=== PATIENT | female | born 2000 | race Hispanic/Latino ===

== ENCOUNTER 2020-03-02 22:06 | Emergency (ER) | payer SELFPAY ==
[2020-03-02 23:33] LABS: #Eosinphils 0.3 thou/uL (0.0-0.7); #Lymphocytes 3.2 thou/uL (1.20-3.40); #Monocytes 1.1 thou/uL (0.11-0.59); #Neutrophils 7.3 thou/uL (1.40-6.50); %Basophils 0.3 % (0.0-1.0); %Eosinophils 2.7 % (0.0-10.0); %Lymphocytes 26.7 % (28.0-48.0); %Neutrophils 61.2 % (31.0-61.0); Hemoglobin 10.9 g/dL (12.0-16.0); Mean Corpuscular HGB CONC 34.1 g/dL (32.0-36.0); Mean Corpuscular Hemoglobin 31.5 pg (25.0-35.0); Mean Corpuscular Volume 92.3 fL (78.0-98.0); Mean Platelet Volume 7.7 fL (7.4-10.4); Platelet Count 327 thou/uL (130-400); RBC Distribution Width 12.5 % (11.5-14.5); Red Blood Cell (RBC) Count 3.48 mill/uL (4.00-5.20)
[2020-03-02 23:49] LABS: ALT (SGPT) 22 U/L (8-55); AST (SGOT) 14 U/L (5-30); Albumin 3.8 g/dL (3.5-5.0); Alkaline Phosphatase 75 U/L (40-100); Anion Gap 12 mmol/L (10-20); BUN (Urea Nitrogen) 6 mg/dL (8.4-21.0); Bilirubin, Total 0.2 mg/dL (0.2-1.2); Calc. Creatinine Clearance 0 mL/min (70-130); Carbon Dioxide 22 mmol/L (22-29); Chloride 107 mmol/L (98-107); Estimated GFR-MDRD Greater than 90; Globulin 3.1 g/dL (2.4-3.5); Glucose 93 mg/dL (70-105); Potassium 4.1 mmol/L (3.5-5.1); Protein, Total 6.9 g/dL (6.0-8.3); Sodium 137 mmol/L (136-145)
[2020-03-02 23:56] LABS: Bilirubin Negative (Negative); Blood, Urine Negative (Negative); Clarity Turbid (Clear); Glucose, Urine (Dipstick) Normal (Negative); Ketone, Urine Negative (Negative); Leukocyte 500 Leu/uL (Negative); Nitrite Negative (Negative); Protein, Urine (Dipstick) 10 mg/dL (Neg-Trace); RBC/HPF 0-3 HPF (0-3); Specific Gravity, Urine 1.022 (1.002-1.036); Urobilinogen Normal mg/dL (Less than 2); WBC/HPF 0-3 HPF (0-3)
[2020-03-02 23:57] LABS: Bacteria/HPF 1+ HPF (None Seen)
[2020-03-06 21:47] LABS: Chlamydia by PCR Not Detected (NotDetected); GC by PCR Not Detected (NotDetected)
== END 2020-03-03 01:01 | disposition home or self-care (01) ==
LOC: ERS 22:06
DX: O98.812 Other maternal infectious and parasitic diseases complicating pregnancy, second trimester (principal); B37.3 Candidiasis of vulva and vagina; O23.42 Unspecified infection of urinary tract in pregnancy, second trimester; Z3A.17 17 weeks gestation of pregnancy
CPT/HCPCS: 36415; 80053; 81003; 81015; 85025; 87077; 87086; 87480; 87491; 87510; 87591; 87660; 99283

== ENCOUNTER 2020-07-07 10:24 | Day surgery (SDC) | payer SELFPAY ==
--- NOTE | 2020-07-07 13:33 | PDOC.FPROB ---
FMR OB H&P: HPI - History of Present Illness Chief Complaint: BPP 6/10 in office Indentification: 20F at 35.6WGA History of Present Illness: Liudmila was sent from [facility] after a BPP score of 4/10 was obtained. She states she has felt good movement and denies ORTIZ/vision changes/SOB/CP/dysuria/vaginal discharge/vaginal bleeding/LOF. 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 UDS positive for cannabinoids in , followed by negative repeats - Family History Family History: Fam hx noncontributory FMR OB H&P: Medications - Current Home Medications: Medication Instructions Recorded Confirmed Type Ferrous Fumarate [Ferrocite] 07/07/20 History Pnv No.95/Ferrous Fum/Folic AC 1 each PO 07/07/20 History [ Caplet] Allergies/Adverse Reactions: Allergies Allergy/AdvReac Type Severity Reaction Status Date / Time No Known Allergies Allergy Unverified 07/07/20 11:24 FMR OB H&P: ROS - Review of Systems General: denies: recent trauma Eyes: denies: vision changes, double vision, scotomas, floaters ENT: denies: nasal congestion Cardiovascular: denies: chest pain Respiratory: denies: shortness of breath Gastrointestinal: denies: abdominal pain Genitourinary (Female): denies: dysuria, vaginal discharge, vaginal bleeding, contractions Musculoskeletal: denies: swelling Neurologic: denies: headache Integumentary: denies: rash Endocrine: denies: polyuria FMR OB H&P: Vital Signs - Heart Tones Baseline: 140 Variability: moderate Acceleration: present Deceleration: variable Category: category 1 [place] contractions every: 0 FMR OB H&P: Physical Exam - Physical Exam General: NAD, awake, alert and oriented HEENT: normocephalic and atraumatic, EOMI, grossly normal vision, grossly normal hearing Neck: supple, FROM Chest: non-tender to palpation Heart: RRR, normal S1/S2, no edema General: CTAB, no respiratory distress, good air movement Abdomen: soft, gravid, non-tender, bowel sound present Musculoskeletal: FROM in all four extremities Neurological: no focal deficit Skin: no rash Lymphatic: no unusual bruising or bleeding Psychiatric: intact recent and remote memory, good judgement and insight, normal mood and affect FMR OB H&P: A/P Disposition: This is a 20yo at 35.6wks who was sent from clinic for non-reassuring testing. Non-reassuring testing - BPP in clinic of 11/12 - NST on arrival reactive: baseline 140, moderate variability, >2 accels, few variable decels - Will repeat BPP 4-6hrs after the one performed in clinic - Continuous monitoring sIUP in 3T - 35.6WGA Hx of genital HSV - Recommend Valtrex at 36.0WGA for ppx Hx of marijuana use - UDS positive for cannabinoids with confirmatory test - Multiple f/u UDS, all neg Hx of Covid in - Now resolved Diet: Regular, pending completion of BPP PCP: ISSA Cameron Dispo: on L&D for triage pending completion of testing. Discussion: Date/Time: 07/07/20 4169 This H&P was discussed with Dr. Pk Piña and Dr. Ce Cristobal who agree with the above documentation and plan. Addendum - Attending - Attending Attestation Date/Time: 07/07/202205 I personally evaluated the patient and discussed the management with Dr. [] I agree with the History, Examination, Assessment and Plan documented above with any addition or exceptions noted below.
--- NOTE | 2020-07-07 15:20 | PDOC.BPN ---
- Brief Progress Note Encounter Date: 07/07/20 Encounter Time: 15:15 S: Liudmila is doing well and has no concerns at this time. O: BPP completed with score of 03/12 P: Reactive NST on arrival + 03/12 BPP score makes for reassuring testing. Will discharge pt and recommend f/u with PCP on Saturday. Plan discussed with Dr. Cristobal who agrees.
--- NOTE | 2020-07-07 15:34 | ULT ---
ULTRASOUND BIOPHYSICAL PROFILE: DATE: 07/07/2020 HISTORY: 20-year-old female with abnormal biophysical profile in office, 6 out of 10 FINDINGS: breathin tone: 2 movement: 2 Amniotic fluid volume: 2 lie: Vertex heart rate: 140 bpm LONA: 11.5 cm Placenta: Anterior. No placenta previa. Maternal cervix: Obscured IMPRESSION: Normal biophysical profile score of 8 out of 8, excluding the nonstress test.
[2020-07-08] MEDS ORDERED: FLU VACC QS2020-21(6MOS UP)/PF 60 MCG/0.5 ML SYRINGE IM ONE (09:00)
== END 2020-07-07 15:40 | disposition home or self-care (01) ==
LOC: L&D/OP 10:24
PROVIDERS: ATTEND Family Medicine
DX: Z01.89 Encounter for other specified special examinations (principal); O99.013 Anemia complicating pregnancy, third trimester; D64.9 Anemia, unspecified; Z3A.35 35 weeks gestation of pregnancy; Z86.19 Personal history of other infectious and parasitic diseases; Z86.59 Personal history of other mental and behavioral disorders
CPT/HCPCS: 76819

== ENCOUNTER 2020-07-19 03:42 | Inpatient (IN) | payer MEDICAID, OTHER, SELFPAY ==
[2020-07-19 04:09] VITALS: BMI 33.6
[2020-07-19] MEDS ORDERED: Methylergonovine 0.2 MG/ML VIAL IM PRN (04:56)
[2020-07-19] MEDS ORDERED: Carboprost 250 MCG/ML AMP IM PRN (04:56)
[2020-07-19] MEDS ORDERED: Lidocaine 1% (PF) 30 ML VIAL SC PRN (04:56)
[2020-07-19] MEDS ORDERED: Misoprostol 200 MCG TAB PR PRN (04:56)
[2020-07-19] MEDS ORDERED: Promethazine HCl 25 MG/ML VIAL IM PRN ×2 (04:56→06:05)
[2020-07-19] MEDS ORDERED: NS / Oxytocin 40 units/1000ml 1,000 ML IV PRN (04:56)
[2020-07-19] MEDS ORDERED: Ondansetron PF 4 MG/2 ML Vial IVP PRN ×2 (04:56→06:05)
[2020-07-19] MEDS ORDERED: hydrALAZINE 20 MG/ML VIAL SLOW IVP PRN ×2 (04:56→07:22)
[2020-07-19] MEDS ORDERED: Ibuprofen 800 MG TAB PO PRN (04:56)
[2020-07-19] MEDS ORDERED: Lactated Ringer's 1,000 ML IV SCH (05:00)
[2020-07-19] MEDS ORDERED: Penicillin G 2.5 MILL.units 2.5 MILL.UNITS in Premix Bag 1 BAG IVPB SCH (05:00)
[2020-07-19] MEDS ORDERED: Penicillin G Potassium 5 MILL.UNITS in Sodium Chloride 0.9% 100 ML IVPB SCH (05:00)
--- NOTE | 2020-07-19 05:00 | PDOC.FPROB ---
FMR OB H&P: HPI - History of Present Illness Chief Complaint: SROM History of Present Illness: 37 y/o @ 37.4 wks by 7.0 wk sono not c/w LMP presents with c/o SROM at 0200 this AM. Reports contractions starting around 2200 last night becoming stronger, more frequent and SROM clear fluid at 0200. Endorses good movement, no vaginal bleeding, no vaginal discharge other than clear fluid. has been complicated by COVID-19 infection in 01/2020, marijuana use in early . Hx of HSV, was started on valcyclovir yesterday, denies active lesions or prodromal symptoms. GBS positive, no known allergies. evaluation revealed elevated msAFP, subsequent sono with MFM had isolated EIF on anatomy scan which was resolved on later scans although views were described as suboptimal due to positioning. Primary Care Physician: ISSA Cameron FMR OB H&P: Current - Care : 1 Para: 0 Gestational age: 37.4 Due date: 08/05/20 Dating Criteria: 7.0 wk sono not c/w LMP Course/Complications: COVID 19 in 01/2020 Hx Marijuana use Hx HSV elevated msAFP isolated EIF - OB Labs Blood type: O RH: positive Antibody Screen: negative RPR: negative HepBsAg: negative Rubella: immune Quad screen: positive (elevated msAFP) Urine drug screen: positive (marijuana in 1T, neg 3T) Gonorrhea: negative Chlamydia: negative 1 hour gtt: 2 HR 73/113/105 GBS: positive H&H: 10.8 Additional labs: Hep c non reactive HSV 1 IgG positive HSV 2 IgG negative Trichomonas negative - Anatomy Survey Anatomy survey: isolated EIF at 21.3 wks, anatomically normal fetus on 25.3 wk repeat sono although some suboptimal views noted FMR OB H&P: History - Past Medical History PMH: hx HSV, hx covid 19 denies chronic medical problems - OB History OB History: ; GBS positive - MECHATRONICS TECHNICIAN History MECHATRONICS TECHNICIAN History: denies STDs, no pap (under 21) - Surgical History Sx History: denies past surgery - Social History Social History: hx marijuana use prior to - pos UDS in 1T, neg UDS in 3T denies tobacco, etoh use - Family History Family History: diabetes FMR OB H&P: Medications - Current Home Medications: Medication Instructions Recorded Confirmed Type Ferrous Fumarate [Ferrocite] 1 tab PO DAILY 07/07/20 07/19/20 History Pnv No.95/Ferrous Fum/Folic AC 1 each PO DAILY 07/07/20 07/19/20 History [ Caplet] Acyclovir [Zovirax] 1 tab PO TID 07/19/20 07/19/20 History Allergies/Adverse Reactions: Allergies Allergy/AdvReac Type Severity Reaction Status Date / Time No Known Allergies Allergy Verified 07/19/20 04:10 FMR OB H&P: ROS - Review of Systems General: denies: fever/chills Eyes: denies: eye pain, vision changes ENT: denies: nasal congestion, rhinorrhea, sore throat Cardiovascular: denies: chest pain, palpitation, edema Respiratory: denies: cough, congestion, shortness of breath Gastrointestinal: denies: abdominal pain, cramping, nausea, vomiting, diarrhea, constipation Genitourinary (Female): reports: contractions, vaginal pressure. denies: dysuria, hematuria, polyuria, vaginal discharge, vaginal bleeding Neurologic: denies: headache Integumentary: denies: rash, lesions Endocrine: denies: polyuria Psychological: denies: depression, anxiety FMR OB H&P: Vital Signs - Maternal Vital signs: Vital Signs - First Documented Temp Pulse Resp BP Pulse Ox 98.5 F 76 20 137/82 98 07/19/20 04:03 07/19/20 04:03 07/19/20 04:03 07/19/20 04:03 07/19/20 04:03 - Heart Tones Baseline: 125 Variability: moderate Acceleration: present Deceleration: absent Category: category 1 [place] contractions every: 2-3 min FMR OB H&P: Physical Exam - Physical Exam General: awake, alert and oriented, other (uncomfortable with contractions) HEENT: normocephalic and atraumatic, MMM, conjunctiva clear, no scleral icterus, grossly normal vision, grossly normal hearing Neck: supple Chest: non-tender to palpation Heart: RRR, no murmurs/rubs/gallops, pulses present, no edema General: CTAB, no respiratory distress Abdomen: soft, gravid, non-tender Musculoskeletal: pulses present Neurological: sensation to pain,touch and proprioception grossly normal, DTR +2, no clonus Skin: no rash, good tugor Lymphatic: no unusual bruising or bleeding Psychiatric: intact recent and remote memory, good judgement and insight, normal mood and affect - Pelvic Exam Vulva: normal hair distribution, no lesions Deviation from normal: no HSV lesions; head visible on spec exam; thick white DC vault Cervix: no lesions SVE: /- Membranes: SROM Presentation: vertex - bedside sono & speculum exam FMR OB H&P: A/P Disposition: sIUP @ 37.4 wks, SROM, latent labor 37.4 by 7.0 wk sono not c/w LMP, LARISA 08/05/20. SROM clear fluid at home around 0200. - Vertex on bedside sono - Pooling of clear fluid on speculum exam & scalp visualized through cervical os - desires epidural - FHT 125/mod/+accels, cat 1 - SVE @ 0500 - will admit for continued monitoring and augmentation of latent labor GBS positive No allergies. Will start PCN for GBS ppx. Hx HSV Started valcyclovir yesterday. No lesions on speculum exam. No prodromal sx. [place] Hx [place] use Positive UDS in 1T, negative in 3T. - will repeat UDS Elevated msAFP Isolated EIF - noted on 21.3 wk sono with MFM, - f/u sono at 25.3 wk anatomically normal although some suboptimal views 2/2 position Discussion: Date/Time: 07/19/20 0500 This H&P was discussed with Dr. Edward and Dr. Saha who agree with the above documentation and plan.
[2020-07-19] MEDS ORDERED: DISCONTINUE ALL PREVIOUS NARCOTICS FS SCH (05:15)
[2020-07-19] MEDS ORDERED: Bupivacaine 0.5% 20 ML, fentaNYL Citrate/PF 400 MCG in Sodium Chloride 0.9% 72 ML EPIDURAL SCH (05:15)
[2020-07-19 05:26] LABS: Hemoglobin 12.3 g/dL (12.0-16.0); Mean Corpuscular HGB CONC 34.7 g/dL (32.0-36.0); Mean Corpuscular Hemoglobin 31.6 pg (25.0-35.0); Mean Corpuscular Volume 91.2 fL (78.0-98.0); Mean Platelet Volume 8.3 fL (7.4-10.4); Platelet Count 262 thou/uL (130-400); RBC Distribution Width 13.8 % (11.5-14.5); White Blood Cell (WBC) Count 13.2 thou/uL (4.8-10.8)
[2020-07-19 06:04] LABS: HBSAg Index 0.12 S/CO (0-0.99); Hep B Surf Ag Non-Reactive S/CO (NonReactive); Syphilis Antibody Nonreactive (Nonreactive); Syphilis Antibody Index 0.03 S/CO (<1.00 Non-Reactive)
[2020-07-19] MEDS ORDERED: Lactated Ringer's 500 ML IV PRN (06:05)
[2020-07-19] MEDS ORDERED: Naloxone HCl 0.4 mg/ml Vial IVP PRN ×2 (06:05)
[2020-07-19] MEDS ORDERED: ePHEDrine 50 MG/ML VIAL SLOW IVP PRN (06:05)
[2020-07-19] MEDS ORDERED: diphenhydrAMINE 50 MG/ML VIAL IVP PRN (06:05)
[2020-07-19] MEDS ORDERED: Communication Order-Pharmacy FS SCH (06:15)
[2020-07-19] MEDS ORDERED: Fentanyl 4 mcg/Bupivacaine 0.1% Cassette 100 ML EPIDURAL SCH (06:15)
[2020-07-19 06:56] LABS: Amphetamine Not Detected (NotDetected); Barbiturates Screen Not Detected (NotDetected); Benzodiazepine Screen Not Detected (NotDetected); Cocaine Metabolite Screen Not Detected (NotDetected); Medtox Control Line Valid? VALID (VALID); Medtox Reader # READER 4; Methadone Not Detected (NotDetected); Methamphetamine Not Detected (NotDetected); Opiate Screen Not Detected (NotDetected); Oxycodone Screen Not Detected (NotDetected); Phencyclidine (PCP) Not Detected (NotDetected); THC/Cannabinoid Screen Not Detected (NotDetected); Tricyclic Screen Not Detected (NotDetected)
[2020-07-19] MEDS ORDERED: Lanolin Ointment 7 GM TUBE TOP PRN (07:22)
[2020-07-19] MEDS ORDERED: Bisacodyl 10 MG SUPP PR PRN (07:22)
[2020-07-19] MEDS ORDERED: Milk Of Magnesia 30 ML UDCUP PO PRN (07:22)
[2020-07-19] MEDS ORDERED: Benzocaine-Menthol 82.5 ML CAN TOP PRN (07:22)
[2020-07-19] MEDS ORDERED: NS / Oxytocin 40 units/1000ml 1,000 ML IV SCH (07:30)
--- NOTE | 2020-07-19 08:14 | PDOC.OPDEL ---
OB Operative/Delivery Note Delivery Dr/Surgeon: Julia Del Rosario, PGY1, Laya Cameron, PGY2, Dr Saha, Attending Pre-Delivery Diagnosis: active labor, ruptured membrane Procedure/Post Delivery Dx: spontaneous vaginal delivery Weeks gestation: 37 (37.4) Anesthesia: epidural - Additional Findings/Plan Placenta delivered: spontaneous Repaired Obstetrical Laceration: 2nd degree Estimated blood loss: 481 Compilations/Other Findings: Vaginal Delivery note Delivering Physician: Julia Del Rosario, PGY 1, Laya Cameron PGY 2 Attending: Dr Saha Procedure: Spontaneous Vaginal Delivery Anesthesia: epidural, Local for Repair QBL: 481 ml Pre-op Diagnosis: 1. Term intrauterine in labor 2. GBS+, inadequate treatment 3. Marijuana use in 1T, UDS neg on admission 4. COVID + 01/2020 5. genital HSV 1+ no active lesions 6. abnormal genetic screening: elevated msAFP, low risk echogenic intracardiac focus Post-op Diagnosis: 1. Term intrauterine , delivered 2-6. same as above Indications: A 20y/o female @37.4wks presents in active labor Delivery Note: This is 20yo F @ 37.4 wks who delivered a viable M infant at 0642. Following an uneventful antepartum course, a vigorous male was delivered over an intact perineum in the OA position. Anterior Shoulder and then remainder of the body delivered. No nuchal cord. The head was held down and mouth and nares were bulb suctioned. Cord clamped and cut and cord blood collected. Placenta delivered intact with a 3 vessel cord noted. Fundal massage was performed and the fundus was firm. The cervix and vagina were inspected and found to have second degree laceration. Laceration repaired with 3-0 vicryl suture in the usual fashion with good approximation and hemostasis after a local anesthetic lidocaine was injected at site. Infant went to nursery in good condition for routine care. Apgars were 9/9 at 1 & 5 minutes, respectively. Patient tolerated delivery well and went to after routine recovery/care. Post delivery plan: routine recovery Addendum - Attending - Attending Attestation Date/Time: 07/20/20 1036 I personally evaluated the patient and discussed the management with Dr. I agree with the History, Examination, Assessment and Plan documented above with any addition or exceptions noted below. I was present and supervising for the second and third stages of labor.
[2020-07-19] MEDS ORDERED: Bupivacaine/Epinephrine 0.25% 30 ML VIAL ONE (08:54)
[2020-07-19] MEDS: Acetaminophen 325 MG TAB PO PRN (08:59)
[2020-07-19] MEDS ORDERED: Penicillin G 2.5 MILL.units 50 ML IVPB SCH (09:00)
[2020-07-19] MEDS: Ferrous Sulfate 325 MG TAB PO SCH ×2 (11:09→17:25)
[2020-07-19] MEDS: Ibuprofen 800 MG TAB PO SCH ×2 (11:13→21:25)
[2020-07-19] MEDS: Docusate Calcium (SURFAK) 240 MG CAP PO SCH ×2 (11:14→21:25)
[2020-07-19 12:30] LABS: SARS-CoV-2 MS2 Positive; SARS-CoV-2 N Gene Negative; SARS-CoV-2 S Gene Negative; SARS-CoV-2 by NAA Not Detected (NotDetected); SARS-CoV-2 orf1ab Negative
[2020-07-20] MEDS: Ibuprofen 800 MG TAB PO SCH ×2 (05:41→14:05)
--- NOTE | 2020-07-20 07:47 | PDOC.PP ---
Post Progress Note Post Day #: 1 Subjective: passing gas, urinating well bonding with light lochia less than period pain 4/10 and controlled with motrin/tylenol PO intake tolerated: yes Flatus: yes Ambulation: yes Vital Signs (12 hours) Temp Pulse Resp BP 07/20/20 05:40 98.0 F 73 15 106/57 L 07/19/20 23:45 98.3 F 72 15 113/58 L Weight Weight 86.183 kg - Physical Examination General: NAD Cardiovascular: no m/r/g, RRR Respiratory: clear to auscultation bilaterally, non-labored breathing Abdominal: + bowel sounds, lochia, no distention, appropriately TTP Skin: no rash Neurological: no gross focal deficits Psychiatric: A&Ox3, normal affect Result Diagrams: 07/19/20 05:12 Additional Labs: Post Labs Hep Bs Antigen Non-Reactive S/CO (NonReactive) 07/19/20 05:12 Blood Type O POSITIVE 07/19/20 06:13 - Assessment/Plan PP day #1 37.4 wks - pain controlled, voiding and passing gas. - bonding well with infant. GBS positive, inadequate ppx Hx HSV Started valcyclovir day before delivery. No lesions on speculum exam. [place]x COVID [place] Hx marijuana use Positive UDS in 1T, negative in 3T. - negative on admission Elevated msAFP Isolated EIF - noted on 21.3 wk sono with MFM, - f/u sono at 25.3 wk anatomically normal although some suboptimal views 2/2 position - aware and no concern at this time Dispo: stable, will discharge to B&B today Addendum - Attending - Attending Attestation Date/Time: 07/22/20 4799 I personally evaluated the patient and discussed the management with Dr. Cameron. I agree with the History, Examination, Assessment and Plan documented above.
[2020-07-20 08:11] VITALS: BP 123/63; TEMP 97.9
[2020-07-20] MEDS: Ferrous Sulfate 325 MG TAB PO SCH (08:39)
[2020-07-20] MEDS: Acetaminophen 325 MG TAB PO PRN (08:53)
[2020-07-20] MEDS: Docusate Calcium (SURFAK) 240 MG CAP PO SCH (08:53)
[2020-07-20] MEDS ORDERED: Adacel (T-DAP) 0.5 ML SYRINGE IM ONE (09:00)
== END 2020-07-20 15:15 | disposition home or self-care (01) | DRG 807 ==
LOC: L&D/OP 03:42 → L&D 06:14 → 3SW 10:17
PROVIDERS: ADMIT Obstetrics & Gynecology; ATTEND Obstetrics & Gynecology
PROC: 10E0XZZ Delivery of Products of Conception, External Approach (ICD-10-PCS; principal; 2020-07-19)
PROC: 0KQM0ZZ Repair Perineum Muscle, Open Approach (ICD-10-PCS; 2020-07-19)
DX: O99.824 Streptococcus B carrier state complicating childbirth (principal); Z37.0 Single live birth; Z3A.37 37 weeks gestation of pregnancy; O70.1 Second degree perineal laceration during delivery; Z20.828 Contact with and (suspected) exposure to other viral communicable diseases
CPT/HCPCS: 36415; 51702; 80306; 85027; 86780; 86850; 86900; 86901; 87340; 87635; 99285; J2540; J3010; J3490; U0003

== ENCOUNTER 2022-08-04 15:28 | Observation (INO) | payer MEDICAID, SELFPAY ==
[2022-08-04] MEDS ORDERED: FENTANYL 50 MCG/ML 1 ML VIAL ONE (17:18)
[2022-08-04 18:19] LABS: #Eosinphils 0.3 thou/uL (0.0-0.7); #Lymphocytes 2.5 thou/uL (1.20-3.40); %Basophils 0.2 % (0.0-1.0); %Eosinophils 2.3 % (0.0-10.0); %Lymphocytes 16.7 % (21.0-51.0); %Neutrophils 73.9 % (42.0-75.0); Hemoglobin 13.6 g/dL (12.0-16.0); Mean Corpuscular HGB CONC 34.7 g/dL (32.0-36.0); Mean Corpuscular Hemoglobin 32.1 pg (27.0-31.0); Mean Corpuscular Volume 92.5 fl (78.0-98.0); Mean Platelet Volume 7.8 fL (7.4-10.4); Platelet Count 338 10x3/uL (130-400); RBC Distribution Width 12.4 % (11.5-14.5); Red Blood Cell (RBC) Count 4.24 mill/uL (4.20-5.40); White Blood Cell (WBC) Count 14.9 10x3/uL (4.8-10.8)
[2022-08-04 18:26] LABS: BHCG - Serum Negative (NEGATIVE); Pregs Control Background? CLEAR/WHITE (CLR/WHITE); Pregs Control Bar Appear? YES (CONTROL BAR)
[2022-08-04] MEDS ORDERED: Morphine 2 MG/ML VIAL SLOW IVP PRN (18:26)
[2022-08-04] MEDS ORDERED: Ondansetron PF 4 MG/2 ML Vial IVP PRN (18:26)
[2022-08-04] MEDS ORDERED: Ondansetron ODT 4 MG TAB PO PRN (18:26)
[2022-08-04] MEDS ORDERED: Dextrose 5% in Water 1,000 ML IV PRN (18:26)
[2022-08-04] MEDS ORDERED: hydrALAZINE 20 MG/ML VIAL SLOW IVP PRN (18:26)
[2022-08-04] MEDS ORDERED: Dextrose 50% Abboject 50 ML SYRINGE SLOW IVP PRN (18:26)
[2022-08-04] MEDS ORDERED: TETANUS, DIPHTHERIA TOX,ADULT (TDVAX) 0.5 ML VIAL IM ONE (18:26)
[2022-08-04] MEDS ORDERED: Cyclobenzaprine 10 MG TAB PO PRN (18:28)
[2022-08-04] MEDS ORDERED: traMADol HCl 50 MG TAB PO PRN (18:29)
[2022-08-04 18:36] LABS: ALT (SGPT) 27 U/L (8-55); AST (SGOT) 21 U/L (5-34); Albumin 4.9 g/dL (3.5-5.0); Alkaline Phosphatase 98 U/L (40-110); Anion Gap 13 mmol/L (10-20); BUN (Urea Nitrogen) 7 mg/dL (7.0-18.7); Bilirubin, Total 0.5 mg/dL (0.2-1.2); Calc. Creatinine Clearance 0 mL/min (70-130); Calcium 9.7 mg/dL (7.8-10.44); Carbon Dioxide 24 mmol/L (22-29); Chloride 106 mmol/L (98-107); Estimated GFR 125; Globulin 3.3 g/dL (2.4-3.5); Glucose 97 mg/dL (70-105); Potassium 3.5 mmol/L (3.5-5.1); Protein, Total 8.2 g/dL (6.0-8.3); Sodium 139 mmol/L (136-145)
[2022-08-04] MEDS ORDERED: CEFAZOLIN 2 GM in Sodium Chloride 0.9% 100 ML IVPB SCH (19:00)
[2022-08-04 19:48] LABS: SARS-CoV-2 NAA Rapid Test Not Detected (NotDetected)
[2022-08-04] MEDS ORDERED: Acetaminophen 500 MG TAB PO SCH (20:00)
[2022-08-04] MEDS: Acetaminophen 500 MG TAB PO SCH (21:17)
[2022-08-04] MEDS: Morphine 4 MG/ML VIAL SLOW IVP PRN (21:17)
[2022-08-04] MEDS: Senokot S 8.6-50 MG TAB PO SCH (21:18)
[2022-08-04] MEDS: traMADol HCl 50 MG TAB PO SCH (21:19)
[2022-08-04] MEDS: Famotidine 20 MG TAB PO SCH (21:19)
[2022-08-04] MEDS ORDERED: Sodium Chloride 0.9% 1,000 ML IV SCH (23:55)
[2022-08-05 00:19] VITALS: BMI 31.3
[2022-08-05] MEDS: Gabapentin 100 MG CAP PO SCH ×3 (00:28→15:01)
[2022-08-05] MEDS: Morphine 4 MG/ML VIAL SLOW IVP PRN ×2 (00:49→12:40)
[2022-08-05] MEDS: traMADol HCl 50 MG TAB PO SCH ×3 (02:13→15:07)
[2022-08-05] MEDS: Acetaminophen 500 MG TAB PO SCH ×3 (02:14→15:04)
[2022-08-05 06:23] LABS: #Eosinphils 0.4 thou/uL (0.0-0.7); #Lymphocytes 3.7 thou/uL (1.20-3.40); #Monocytes 1.3 thou/uL (0.11-0.59); #Neutrophils 4.9 thou/uL (1.40-6.50); %Basophils 0.3 % (0.0-1.0); %Eosinophils 3.9 % (0.0-10.0); %Lymphocytes 35.6 % (21.0-51.0); %Monocytes 12.5 % (0.0-10.0); %Neutrophils 47.7 % (42.0-75.0); Hemoglobin 11.9 g/dL (12.0-16.0); Mean Corpuscular HGB CONC 33.7 g/dL (32.0-36.0); Mean Corpuscular Hemoglobin 31.5 pg (27.0-31.0); Mean Corpuscular Volume 93.6 fl (78.0-98.0); Mean Platelet Volume 7.9 fL (7.4-10.4); Platelet Count 288 10x3/uL (130-400); RBC Distribution Width 12.6 % (11.5-14.5); Red Blood Cell (RBC) Count 3.76 mill/uL (4.20-5.40); White Blood Cell (WBC) Count 10.3 10x3/uL (4.8-10.8)
[2022-08-05 06:34] LABS: Phosphorus 4.2 mg/dL (2.3-4.7)
[2022-08-05 06:37] LABS: Anion Gap 13 mmol/L (10-20); BUN (Urea Nitrogen) 9 mg/dL (7.0-18.7); Calc. Creatinine Clearance 157 mL/min (70-130); Calcium 8.7 mg/dL (7.8-10.44); Carbon Dioxide 22 mmol/L (22-29); Chloride 107 mmol/L (98-107); Estimated GFR 123; Glucose 88 mg/dL (70-105); Potassium 3.6 mmol/L (3.5-5.1); Sodium 138 mmol/L (136-145)
[2022-08-05] MEDS ORDERED: Polyethylene Glycol 3350 17 GM Packet PO SCH (09:00)
[2022-08-05] MEDS ORDERED: FLU VACC QS2022-23(6MOS UP)/PF 60 MCG/0.5 ML SYRINGE IM ONE (09:00)
[2022-08-05] MEDS ORDERED: Midazolam HCl 2 mg/2 ml Vial ONE (09:27)
[2022-08-05] MEDS ORDERED: Fentanyl 250 MCG/5 ML VIAL ONE (09:49)
[2022-08-05] MEDS ORDERED: CEFAZOLIN 2 GM VIAL ONE (09:55)
[2022-08-05] MEDS ORDERED: Sodium Chloride 0.9% 100 ML ONE (09:56)
[2022-08-05] MEDS ORDERED: Ondansetron PF 4 MG/2 ML Vial ONE (10:09)
[2022-08-05] MEDS ORDERED: PROPOFOL 200 MG/20 ML VIAL ONE (10:09)
[2022-08-05] MEDS ORDERED: Dexamethasone 20 MG/5 ML VIAL ONE (10:09)
[2022-08-05] MEDS ORDERED: Ketorolac Tromethamine 30 MG/ML VIAL ONE (10:09)
[2022-08-05] MEDS ORDERED: ePHEDrine 50 MG/ML VIAL ONE (10:09)
[2022-08-05] MEDS ORDERED: Ondansetron HCl/PF 4 MG/2 ML Vial IVP PRN (11:10)
[2022-08-05] MEDS ORDERED: Promethazine HCl 25 MG/ML VIAL IM PRN (11:10)
[2022-08-05] MEDS ORDERED: Promethazine HCl 25 MG/ML VIAL IVPB PRN (11:10)
[2022-08-05] MEDS ORDERED: Morphine 4 MG/ML VIAL SLOW IVP PRN (11:12)
[2022-08-05] MEDS ORDERED: Fentanyl 100 MCG/2 ML VIAL ONE (11:15)
[2022-08-05] MEDS: Famotidine 20 MG TAB PO SCH (14:59)
[2022-08-05] MEDS: Senokot S 8.6-50 MG TAB PO SCH (15:00)
[2022-08-05 16:22] VITALS: BP 123/75; TEMP 97.2
[2022-08-05] MEDS ORDERED: CEFAZOLIN 2 GM in Sodium Chloride 0.9% 100 ML IVPB SCH (18:00)
== END 2022-08-05 18:03 | disposition home or self-care (01) ==
LOC: ERS 15:28 → SJJU 17:40 → UNDOADMOB 18:26 → SJJU 18:26
PROVIDERS: ADMIT Surgery; ATTEND Surgery
PROC: 0QSG04Z Reposition Right Tibia with Internal Fixation Device, Open Approach (ICD-10-PCS; principal; 2022-08-05)
DX: S82.841A Displaced bimalleolar fracture of right lower leg, initial encounter for closed fracture (principal); S82.401A Unspecified fracture of shaft of right fibula, initial encounter for closed fracture; G89.11 Acute pain due to trauma; Z20.822 Contact with and (suspected) exposure to COVID-19; X50.1XXA Overexertion from prolonged static or awkward postures, initial encounter; V00.848A Other accident with standing micro-mobility pedestrian conveyance, initial encounter
CPT/HCPCS: 29515; 36415; 80048; 80053; 83735; 84100; 84703; 85025; 90714; 96372; 96374; 96376; C1713; G0378; J1100; J1885; J2250; J2270; J2405; J2704; J3010; J3490; J7050; U0002

== ENCOUNTER 2022-08-10 13:09 | Emergency (ER) | payer OTHER, SELFPAY ==
[2022-08-10] MEDS ORDERED: HYDROcodone/Acetaminophen 5/325 mg Tablet ONE (13:59)
== END 2022-08-10 14:53 | disposition home or self-care (01) ==
LOC: ERS 13:09
DX: S82.401A Unspecified fracture of shaft of right fibula, initial encounter for closed fracture (principal); W01.190A Fall on same level from slipping, tripping and stumbling with subsequent striking against furniture, initial encounter